=== PATIENT | female | born 1975 | race African-American/Black ===

== ENCOUNTER 2023-07-21 04:03 | Emergency (ER) | payer MEDICAID ==
[~2023-07-21] VITALS: Ht 167.6 cm; Wt 86.4 kg
[2023-07-21 04:35] VITALS: BP 147/83; PULSE 118; RESP 24; O2SAT 100
[2023-07-21 06:52] LABS: Alanine Aminotransferase 9 U/L (7-40); Albumin 4.2 g/dL (3.2-4.8); Alkaline Phosphatase 99 U/L (46-116); Anion Gap 9 (5-15); Aspartate Aminotransferase 11 U/L (13-40); Bilirubin, Total 0.3 mg/dL (0.2-1.0); Blood Urea Nitrogen 9 mg/dL (9-23); Calcium 9.2 mg/dL (8.5-10.1); Carbon Dioxide 22 mmol/L (20-30); Chloride 107 mmol/L (98-107); Glucose 96 mg/dL (74-106); Potassium 3.3 mmol/L (3.5-5.1); Sodium 138 mmol/L (136-145); Total Protein 8.1 g/dL (5.7-8.2)
[2023-07-21 07:16] LABS: Hematocrit 29.9 % (36.0-46.0); Hemoglobin 8.4 g/dL (12.2-16.2); Mean Corpuscular Hemoglobin 16.3 pg (28.0-32.0); Mean Corpuscular Hgb Conc. 28.2 g/dL (32.0-36.0); Mean Corpuscular Volume 57.7 fL (80.0-100.0); Red Blood Cells 5.18 10^6/uL (4.0-5.20)
[2023-07-21 07:24] LABS: Red Cell Distribution Width 21.2 % (11.8-14.3)
[2023-07-21 07:27] LABS: Basophils % (manual) 0 (0.0-2.0); Blast Cells 0; Metamyelocytes % 0; Myelocytes % 0; Promyelocytes % 0; Reactive Lymphocytes 0; White Blood Cell 33.8 10^3/uL (4.4-10.8)
[2023-07-21 08:56] LABS: Band Neutrophils % (manual) 5; Eosinophils % (manual) 1 (0-7); Lymphocytes % (manual) 9 (10.0-50.0); Monocytes % (manual) 9 (0-12)
[2023-07-21 08:57] LABS: Anisocytosis Slight; Hypochromia Marked; Platelet Estimate Adequate
== END 2023-07-21 10:04 | disposition left against medical advice (07) ==
LOC: ER 04:03
DX: R10.2 Pelvic and perineal pain (principal); Z53.21 Procedure and treatment not carried out due to patient leaving prior to being seen by health care provider
CPT/HCPCS: 36415; 80053; 84702; 85007; 85027

== ENCOUNTER 2025-04-30 23:09 | Inpatient (IN) | payer MEDICAID, OTHER ==
[~2025-04-30] VITALS: Ht 180.3 cm; Wt 109.0 kg
--- NOTE | 2025-04-30 23:31 | ECG ---
[facility] Test Date: 2025-04-30 Test Time: 23:26:15 Pat Name: WANDY ROMERO Department: ED Room: 0232 Gender: F Phone Banker: SU : 1975 Requested By: EMERGENCY EMERGENCY Order Number: [id number] Reading MD: Quincy Carter Measurements Intervals [place] Rate: 99 P: 77 TN: 169 QRS: 34 QRSD: 93 T: 96 QT: 406 QTc: 522 Interpretive Statements Sinus rhythm Biatrial enlargement Nonspecific T abnormalities, lateral leads Prolonged QT interval Electronically Signed On 05-02-2025 15:45:45 PST by Quincy Carter Please click the below link to view image of tracing.
[2025-05-01] VITALS (8 sets, daily range): BP systolic 124–184; BP diastolic 82–107; PULSE 88–104; RESP 18–20; TEMP 97–98.1; O2SAT 93–99
--- NOTE | 2025-05-01 | ED.PDOC ---
History of Present Illness HPI Comments 49-year-old female who presents to the ED via EMS with a chief complaint of headache onset today. Per EMS, patient began experiencing a headache as well as generalized weakness, ringing of bilateral ears after eating dinner around 22:00. Upon EMS arrival patient was hypertensive with a BP of 210 systolic. Patient states she began experiencing headache, radiating to left neck, left shoulder, generalized weakness, pressure sensation to epigastric region, described as a bloating sensation. Patient states she has not had a menstrual cycle for the past 3 months, possible . P:3. Rates pain 7/10. Upon ED arrival BP was 65/100. Denied head injury, chest pain, shortness of breath, dizziness, nausea, vomiting, diarrhea, constipation, hematuria, dysuria. No other symptoms or modifying factors present at this time. PHYSICAL EXAM: General: Awake, alert and oriented. Skin: Skin in warm, dry and intact. Appropriate color for ethnicity. HEENT: The head is normocephalic and atraumatic. Conjunctivae are clear without exudates or hemorrhage. Sclera is non-icteric. Eyelids are normal in appearance without swelling or lesions. Oral mucosa is pink and moist Neck: Bilateral neck tenderness. Cardiac: Heart rate and rhythm are normal. No murmurs, gallops, or rubs are auscultated. Respiratory: No signs of respiratory distress. Lung sounds are clear in all lobes bilaterally without rales, rhonchi, or wheezes. Abdominal: Abdomen is soft, non-tender without distention, guarding or rigidity. Bowel sounds are present and normoactive in all four quadrants. Extremities: Upper and lower extremities are atraumatic in appearance without deformity or edema. Neurological: The patient is awake, alert and oriented to person, place, and time with normal speech. Speech is clear. There is no facial asymmetry. Psychiatric: Appropriate mood and affect. Good judgement and insight. REVIEW OF SYSTEMS: General: Generalized weakness. HEENT: Bilateral ear ringing Cardiac: No chest pain. No palpitations. Lungs: No shortness of breath, no cough. GI: Epigastric pressure. : No dysuria, frequency, or urgency. No hematuria. Musculoskeletal: LT neck pain, LT shoulder pain Skin: No rash, no itching. Neuro: Headache, weakness (And as sated in HPI) Chief Complaint: Headache Time Seen by MD: 23:40 Reviewed Notes: Medications, Allergies Allergies: Coded Allergies: NO KNOWN ALLERGIES (Unverified , 07/21/23) Information Source: Patient, Emergency Med Personnel Mode of Arrival: EMS Severity: Moderate Timing: Hours Duration: Since onset Prehospital treatment: None Past Medical History PAST MEDICAL HISTORY: Denies Surgical History: Denies all surgeries ADJUSTER History: No Pertinent ADJUSTER History Family History Family History: Reviewed,noncontributory to illness, No family hx of Cancer, No family hx of DM, No family hx of Heart héctor, No family hx of HTN, No family hx ofKidney héctor, No family hx of Liver héctor, No family hx of Lung héctor, No family hx of Stroke Social History Smoker: Non-Smoker Alcohol: Denies ETOH Use Drugs: Denies Drug Use Lives In: Home Was a procedure done? Was a procedure done?: No EKG EKG : Pulse Rate (adult): 99 Cardiac Rhythm: NSR Differential Dx Considerations may include: Differential diagnoses considered include but are not limited to temporal arteritis, acute angle closure glaucoma, encephalitis, bacterial meningitis, carbon monoxide poisoning, posttraumatic headache, SAH, subdural hematoma, cervical artery dissection, venous sinus thrombosis, CVA, migraine headache, cluster headache, tension headache, TMJ disorder, frontal sinusitis, cervical spondylosis, intracranial mass, pituitary apoplexy. X-Ray, Labs, Meds, VS Vital Signs Date Time Temp Pulse Resp B/P (MAP) Pulse Ox O2 Delivery O2 Flow Rate FiO2 05/01/25 07:30 98.4 88 18 157/112 (127) 96 98.4 05/01/25 07:30 88 18 98 Room Air* 0 21 05/01/25 06:00 87 16 138/99 (112) 97 05/01/25 05:22 97 209/125 05/01/25 04:30 64 05/01/25 04:00 98 19 175/106 (129) 98 05/01/25 02:00 98 23 175/106 (129) 98 05/01/25 01:04 182/117 05/01/25 01:00 Nasal Cannula* 4 36 05/01/25 00:01 106 05/01/25 00:00 99 04/30/25 23:56 98.4 104 94 165/100 (121) 95 98.4 04/30/25 23:26 99 04/30/25 23:15 98.7 101 16 183/119 99 98.7 Lab Test 05/01/25 03:00 05/01/25 00:50 05/01/25 00:00 Range/Units Troponin I High Sensitivity 33 37 *H 34 </=34 ng/L Beta HCG, Quantitative 3.4 1.5-4.2 mIU/mL White Blood Count 8.4 4.4-10.8 10^3/uL Red Blood Count 6.06 H 4.0-5.20 10^6/uL Hemoglobin 15.7 12.2-16.2 g/dL Hematocrit 46.7 H 36.0-46.0 % Mean Corpuscular Volume 77.0 L 80.0-100.0 fL Mean Corpuscular Hemoglobin 25.9 L 28.0-32.0 pg Mean Corpuscular Hemoglobin Concent 33.6 32.0-36.0 g/dL Red Cell Distribution Width 19.6 H 11.8-14.3 % Platelet Count 268 140-450 10^3/uL Mean Platelet Volume 9.0 6.9-10.8 fL Neutrophils (%) (Auto) 69.4 37.0-80.0 % Lymphocytes (%) (Auto) 18.2 10.0-50.0 % Monocytes (%) (Auto) 9.7 0.0-12.0 % Eosinophils (%) (Auto) 2.0 0.0-7.0 % Basophils (%) (Auto) 0.7 0.0-2.0 % Neutrophils # (Auto) 5.9 1.6-8.6 10 ^3/uL Lymphocytes # (Auto) 1.5 0.4-5.4 10 ^3/uL Monocytes # (Auto) 0.8 0-1.3 10 ^3/uL Eosinophils # (Auto) 0.2 0-0.8 10 ^3/uL Basophils # (Auto) 0.1 0-0.2 10 ^3/uL Nucleated Red Blood Cells 0.1 % Sodium Level 145 136-145 mmol/L Potassium Level 2.9 L 3.5-5.1 mmol/L Chloride Level 108 H 98-107 mmol/L Carbon Dioxide Level 25 20-31 mmol/L Anion Gap 12 5-15 Blood Urea Nitrogen 8 L 9-23 mg/dL Creatinine 0.82 0.550-1.02 mg/dL Glomerular Filtration Rate Calc 87 >90 mL/min BUN/Creatinine Ratio 9.8 L 10.0-20.0 Serum Glucose 98 74-106 mg/dL Calcium Level 8.8 8.7-10.4 mg/dL Current Medications Medications (Trade) Dose Ordered Sig/Chante Route Start Time Stop Time Status Last Admin Sodium Chloride 1,000 ml @ 1,000 mls/hr Q1H ONCE IV 05/01/25 00:00 05/01/25 00:59 DC 05/01/25 00:05 Ketorolac Tromethamine (Toradol Injection) 30 mg ONCE ONCE IV 05/01/25 00:00 05/01/25 00:01 DC 05/01/25 00:11 Diphenhydramine HCl (Benadryl Injection) 25 mg ONCE ONCE IV 05/01/25 00:00 05/01/25 00:01 DC 05/01/25 00:09 Clonidine HCl (Catapres Tablet) 0.1 mg ONCE ONCE PO 05/01/25 01:00 05/01/25 01:01 DC 05/01/25 01:04 Potassium Chloride 100 ml @ 50 mls/hr ONCE ONCE IV 05/01/25 04:45 05/01/25 06:44 DC 05/01/25 05:22 Labetalol HCl (Labetalol HCl) 20 mg ONCE ONCE IV 05/01/25 04:45 05/01/25 04:46 DC 05/01/25 05:22 Time of 1ST Reevaluation: 00:10 Reevaluation 1ST: Unchanged Patient Education/Counseling: Diagnosis, Treatment, Need For Follow Up Family Education/Counseling: No Family Present SEPSIS Sepsis Screen Date sepsis recognized/suspect: Apr 30, 2025 Time Sepsis recognized/suspect: 2314 Recent Procedure: No On Antibiotic Therapy: No Respiratory Rate >20: No Heart Rate >90: Yes Temp<36 C (96.8 F) or >38.3 C: No SBP <90 or MAP <65 mmHG: No New Acute Mental Status Change: No Is the patient on CPAP, BIPAP,: No Physician Orders Titrate Oxygen (04/30/25 23:48) Oxygen (04/30/25 ) Continous Pulse Oximetry (04/30/25 23:48) Saline Lock (04/30/25 23:48) Tennis Desk Team Member (04/30/25 ) Test, Urine (05/01/25 00:59) Urinalysis (05/01/25 03:11) Vital Signs Date Time Temp Pulse Resp B/P (MAP) Pulse Ox O2 Delivery O2 Flow Rate FiO2 05/01/25 07:30 98.4 88 18 157/112 (127) 96 98.4 05/01/25 07:30 88 18 98 Room Air* 0 21 05/01/25 06:00 87 16 138/99 (112) 97 05/01/25 05:22 97 209/125 05/01/25 04:30 64 05/01/25 04:00 98 19 175/106 (129) 98 05/01/25 02:00 98 23 175/106 (129) 98 05/01/25 01:04 182/117 05/01/25 01:00 Nasal Cannula* 4 36 05/01/25 00:01 106 05/01/25 00:00 99 04/30/25 23:56 98.4 104 94 165/100 (121) 95 98.4 04/30/25 23:26 99 04/30/25 23:15 98.7 101 16 183/119 99 98.7 Laboratory Tests Test 05/01/25 00:00 White Blood Count 8.4 10^3/uL (4.4-10.8) Departure 1 Departure Time of Disposition: 04:35 Impression: Primary Impression: Headache Additional Impressions: Hypertension Elevated troponin Hypokalemia Disposition: ADMITTED INPATIENT Condition: Stable Comments MDM: Patient admitted to hospitalist service for further treatment, evaluation and monitoring. Extensive evaluation was performed in attempt to identify or rule out: (See differential diagnosis section) The following tests were ordered, and results were reviewed by me and discussed with patient: (See diagnostic results section) The following test were independently interpreted by me: EKG Decision regarding hospitalization or escalation of hospital level of care: Risk and benefits of admission for further treatment of patient's condition was considered. Due to patient's current clinical condition, high risk of decline and poor outcome if discharged and need for further inpatient management and monitoring, patient will be admitted to the hospital. Critical Care Note Critical Care Time?: No Stability Stability form required: No Heart Score Heart Score: Heart Score Response (Comments) Value History N/A 0 EKG N/A 0 Age N/A 0 Risk Factors N/A 0 Troponin N/A 0 Total 0 I personally scribed for LUCIANO ESQUEDA MD ([email or web address]) on 05/01/25 at 00:00. Electronically submitted by Chichi Reina ([email or web address]). I personally scribed for LUCIANO ESQUEDA MD ([email or web address]) on 05/01/25 at 00:09. Electronically submitted by Chichi Reina ([email or web address]). I personally scribed for LUCIANO ESQUEDA MD ([email or web address]) on 05/01/25 at 00:14. Electronically submitted by Chichi Reina ([email or web address]). LUCIANO ESQUEDA MD May 01, 2025 00:00
[2025-05-01] MEDS: SODIUM CHLORIDE 0.9% 1,000 ML IV ONE (00:05)
[2025-05-01] MEDS: diphenhydrAMINE HCL 50 MG/1 ML VL IV ONE (00:09)
[2025-05-01] MEDS: KETOROLAC TROMETH 30 MG/ML 1ML VIAL IV ONE (00:11)
[2025-05-01] MEDS: METOCLOPRAMIDE HCL 5MG/ml INJ 2ml VIAL IV ONE (00:12)
[2025-05-01 00:24] LABS: Hemoglobin 15.7 g/dL (12.2-16.2)
[2025-05-01 00:28] LABS: Hematocrit 46.7 % (36.0-46.0); Mean Corpuscular Hemoglobin 25.9 pg (28.0-32.0); Mean Corpuscular Volume 77.0 fL (80.0-100.0); Nucleated Red Blood Cells % 0.1 %
[2025-05-01 00:44] LABS: Sodium 145 mmol/L (136-145)
[2025-05-01 00:45] LABS: Anion Gap 12 (5-15); Calcium 8.8 mg/dL (8.7-10.4); Carbon Dioxide 25 mmol/L (20-31)
[2025-05-01 00:50] LABS: BUN/Creatinine Ratio 9.8 (10.0-20.0); Glucose 98 mg/dL (74-106)
[2025-05-01 00:53] LABS: Blood Urea Nitrogen 8 mg/dL (9-23); Chloride 108 mmol/L (98-107); Potassium 2.9 mmol/L (3.5-5.1)
[2025-05-01] MEDS: POTASSIUM CHL 20MEQ/100ML 100 ML IV ONE (05:22)
[2025-05-01] MEDS: LABETALOL HCL 20 MG/4 ML VL IV ONE (05:22)
[2025-05-01] MEDS ORDERED: MORPHINE SULFATE INJ 2 MG/ml SYRG IV PRN (08:00)
[2025-05-01] MEDS ORDERED: ONDANSETRON HCL 4 MG/2 ML VIAL IV PRN (08:00)
[2025-05-01] MEDS ORDERED: HYDROcodone-ACET 5/325MG TAB PO PRN (08:00)
--- NOTE | 2025-05-01 08:04 | DVHHP2 ---
History of Present Illness Reason for Visit: Generalized weakness History of Present Illness Akiko Velarde is a 49-year-old female with past medical history of who presents to the ED with headache and weakness along with bilateral ringing of the ears that started last night around 10. Per EMS notes patient was also hy pertensive with systolic blood pressure around 210s. Patient reports that her headache radiated to the left side of her neck shoulder and eventually developed abdominal pain with bloating. Patient also reports that she has not had her menstrual cycle for the last 3 months. Patient reports that her headache is 6/10 pressure-like and constant. She reports that medications are helpful. Patient also reports that she has not seen a primary care physician for the last 5 years. Patient reports that she had a bowel movement yesterday being soft and normal. Patient reports that she drinks wine daily and uses marijuana as well as gummies. Patient denies any recent trauma or injury, recent sick contacts, recent travels, recent ingestion of spoiled food, fever, chills, lightheadedness, weakness, dizziness, nausea, vomiting, diarrhea, or urinary symptoms. Past Surgical History: Family History: DM, Other (Mom with diabetes and dad .) Smoke: No ALCOHOL: occassional Drugs: Marijuana, Other Lives: with Family Domestic Violence: Neg Review of Systems Constitutional: Yes: Other Allergies: Coded Allergies: NO KNOWN ALLERGIES (Unverified , 07/21/23) Exam Vital Signs Vital Signs Date Time Temp Pulse Resp B/P (MAP) Pulse Ox O2 Delivery O2 Flow Rate FiO2 05/01/25 06:00 87 16 138/99 (112) 97 05/01/25 01:00 Nasal Cannula* 4 36 04/30/25 23:56 98.4 98.4 General Appearance: Alert, Oriented X3, Cooperative, No acute distress HEENT: Atraumatic, PERRLA, EOMI, Mucous membr. moist/pink Respiratory: Clear to auscultation, Normal air movement Cardiovascular: Regular rate, Normal S1, Normal S2 Abdominal: Normal bowel sounds, Soft Extremities: No clubbing, No cyanosis, Normal pulses Neuro: Normal gait, Normal speech, Strength at 5/5 X4 ext, Normal tone, Sensation intact Psych/Mental Status: Mental status NL, Mood NL Labs/Xrays Labs Test 05/01/25 03:00 05/01/25 00:00 Range/Units Troponin I High Sensitivity 33 </=34 ng/L Beta HCG, Quantitative 3.4 1.5-4.2 mIU/mL White Blood Count 8.4 4.4-10.8 10^3/uL Red Blood Count 6.06 H 4.0-5.20 10^6/uL Hemoglobin 15.7 12.2-16.2 g/dL Hematocrit 46.7 H 36.0-46.0 % Mean Corpuscular Volume 77.0 L 80.0-100.0 fL Mean Corpuscular Hemoglobin 25.9 L 28.0-32.0 pg Mean Corpuscular Hemoglobin Concent 33.6 32.0-36.0 g/dL Red Cell Distribution Width 19.6 H 11.8-14.3 % Platelet Count 268 140-450 10^3/uL Mean Platelet Volume 9.0 6.9-10.8 fL Neutrophils (%) (Auto) 69.4 37.0-80.0 % Lymphocytes (%) (Auto) 18.2 10.0-50.0 % Monocytes (%) (Auto) 9.7 0.0-12.0 % Eosinophils (%) (Auto) 2.0 0.0-7.0 % Basophils (%) (Auto) 0.7 0.0-2.0 % Neutrophils # (Auto) 5.9 1.6-8.6 10 ^3/uL Lymphocytes # (Auto) 1.5 0.4-5.4 10 ^3/uL Monocytes # (Auto) 0.8 0-1.3 10 ^3/uL Eosinophils # (Auto) 0.2 0-0.8 10 ^3/uL Basophils # (Auto) 0.1 0-0.2 10 ^3/uL Nucleated Red Blood Cells 0.1 % Sodium Level 145 136-145 mmol/L Potassium Level 2.9 L 3.5-5.1 mmol/L Chloride Level 108 H 98-107 mmol/L Carbon Dioxide Level 25 20-31 mmol/L Anion Gap 12 5-15 Blood Urea Nitrogen 8 L 9-23 mg/dL Creatinine 0.82 0.550-1.02 mg/dL Glomerular Filtration Rate Calc 87 >90 mL/min BUN/Creatinine Ratio 9.8 L 10.0-20.0 Serum Glucose 98 74-106 mg/dL Calcium Level 8.8 8.7-10.4 mg/dL CLINICAL INFORMATION: Pain and weakness. TECHNIQUE: Axial imaging was obtained through the brain without contrast. Coronal and sagittal reformatted images were obtained, reviewed, and stored. Images were reviewed in brain and bone windows. All CT scans at this medical facility are performed using dose modulation techniques as appropriate to a performed exam including the following: Automated exposure control was utilized; adjustment of the MA and/or KV according to patient size; and use of iterative reconstruction technique. CTDIvol = 59.45 mGy DLP = 2428.56 mGy-cm COMPARISON: None FINDINGS: There is no acute intracranial hemorrhage. No mass effect or midline shift. The ventricles and sulci are within normal limits in size for age. Basal cisterns are patent. The calvarium is unremarkable. Paranasal sinuses are clear. There is sclerosis in the left mastoid, likely sequelae of prior inflammation. No visualized opacification of the mastoid air cells. IMPRESSION: 1. No CT evidence of acute intracranial abnormality. 2. Nonacute findings as described above. EXAM: XY CHEST XRAY 1 VIEW Indication: sob Technique: Single frontal view of the chest was obtained Comparison: None FINDINGS: Lines and Tubes: None Lungs: No focal consolidation. Pleura: No effusion. No pneumothorax. Cardiomediastinal contours: Unremarkable Bones: No acute osseous abnormality. IMPRESSION: No acute cardiopulmonary disease. CLINICAL INFORMATION: Abdominal pain. TECHNIQUE: Axial CT images of the abdomen and pelvis were obtained without IV contrast. Coronal and sagittal reformatted images were obtained, reviewed, and stored. Evaluation of the parenchymal organs is limited without IV contrast. Evaluation of the bowel and mesentery is limited without oral contrast. All CT scans at this medical facility are performed using dose modulation techniques as appropriate to a performed exam including the following: Automated exposure control was utilized; adjustment of the MA and/or KV according to patient size; and use of iterative reconstruction technique. CTDIvol = 25.96 mGy DLP = 1367.97 mGy-cm COMPARISON: None FINDINGS: Examination is limited due to motion artifact and beam hardening artifact from the patient being scanned with arms at sides. Lung bases: Respiratory motion artifact limits evaluation. Mild atelectasis in the lung bases. Mild cardiomegaly. Trace pericardial effusion. Liver: Grossly unremarkable in its noncontrast enhanced appearance. No abnormal density or focal lesion identified. Biliary: Faint calcific density in the gallbladder, likely due to small gallstones. Spleen: Unremarkable. Pancreas: Grossly unremarkable in its noncontrast enhanced appearance. Adrenal glands: Unremarkable. No mass. Kidneys: No hydronephrosis. No renal or ureteral calculi. Aorta/Vascular: No aneurysm or significant calcification. Lymph nodes: No mass or lymphadenopathy. Bowel/mesentery: No small bowel obstruction. No free air or free fluid. Appendix is visualized and appears unremarkable. Scattered colonic diverticula without adjacent inflammatory changes to suggest diverticulitis. Pelvic organs: Uterus is anteverted. Multiple calcifications are seen in the uterus, may be due to small calcified fibroids, although not well evaluated on CT. Bladder: Unremarkable. No mass. Abdominal wall: Small umbilical hernia containing fat and small amount of fluid density. Bones: No acute fracture or suspicious intraosseous lesion. IMPRESSION: 1. Limited examination for the reasons described above. 2. Scattered colonic diverticula without adjacent inflammatory changes to suggest diverticulitis. 3. Small umbilical hernia containing fat small amount of fluid density. 4. Cholelithiasis. 5. Additional nonacute findings as described above. SEPSIS Sepsis Screen Date sepsis recognized/suspect: Apr 30, 2025 Time Sepsis recognized/suspect: 2314 Recent Procedure: No On Antibiotic Therapy: No Respiratory Rate >20: No Heart Rate >90: Yes Temp<36 C (96.8 F) or >38.3 C: No SBP <90 or MAP <65 mmHG: No New Acute Mental Status Change: No Is the patient on CPAP, BIPAP,: No Physician Orders Test, Urine (05/01/25 00:59) Urinalysis (05/01/25 03:11) Vital Signs Date Time Temp Pulse Resp B/P (MAP) Pulse Ox O2 Delivery O2 Flow Rate FiO2 05/01/25 06:00 87 16 138/99 (112) 97 05/01/25 05:22 97 209/125 05/01/25 04:30 64 05/01/25 04:00 98 19 175/106 (129) 98 05/01/25 02:00 98 23 175/106 (129) 98 05/01/25 01:04 182/117 05/01/25 01:00 Nasal Cannula* 4 36 05/01/25 00:01 106 05/01/25 00:00 99 04/30/25 23:56 98.4 104 94 165/100 (121) 95 98.4 Laboratory Tests Test 05/01/25 00:00 White Blood Count 8.4 10^3/uL (4.4-10.8) Medications Medications Dose Ordered Sig/Chante Route Start Time Stop Time Status Last Admin Dose Admin Clonidine HCl 0.1 mg ONCE ONCE PO 05/01/25 01:00 05/01/25 01:01 DC 05/01/25 01:04 0.1 MG Diphenhydramine HCl 25 mg ONCE ONCE IV 05/01/25 00:00 05/01/25 00:01 DC 05/01/25 00:09 25 MG Ketorolac Tromethamine 30 mg ONCE ONCE IV 05/01/25 00:00 05/01/25 00:01 DC 05/01/25 00:11 30 MG Labetalol HCl 20 mg ONCE ONCE IV 05/01/25 04:45 05/01/25 04:46 DC 05/01/25 05:22 20 MG Potassium Chloride 100 ml @ 50 mls/hr ONCE ONCE IV 05/01/25 04:45 05/01/25 06:44 NC 05/01/25 05:22 50 MLS/HR Sodium Chloride 1,000 ml @ 1,000 mls/hr Q1H ONCE IV 05/01/25 00:00 05/01/25 00:59 NC 05/01/25 00:05 1,000 MLS/HR Assessment/Plan Assessment/Plan Assessment Hypertensive urgency Acute hypoxic respiratory failure on supplemental oxygen Hypokalemia Generalized weakness Intractable headache unrelieved with p.o. medications Obesity Marijuana use Alcohol use History of Plan Admit to [facility] head ordered UA ordered UDS ordered Chest x-ray ordered CT abdomen and pelvis ordered Antiemetics Pain management Antihypertensives NS 1 L given in ED test Troponins EKG Diet No home medications reported per patient DVT prophylaxis-SCDs PUD prophylaxis-PPIs Discussed plan of care with patient and nurse Counseled patient on lifestyle modifications, diet, and exercise Counseled patient on cessation of polysubstance use 10072 Behavior change smoking greater than 10 minutes about use of other options also gave option of nicotine patch [id number] Preventive counseling healthy eating habits, physical activity, and regular checkups Plan discussed with: Patient Date of Service: May 01, 2025 Billing Provider: ES HAGAN Common Visit Codes: 72903-[id number] INP/OBS CARE (HIGH) Secondary Visit Codes: [id number] COUNSELING IND, 57490-DURST CHNG SMOKING >10MIN ES HAGAN May 01, 2025 08:04
--- NOTE | 2025-05-01 08:40 | DVH ---
EXAM: XY CHEST XRAY 1 VIEW Indication: sob Technique: Single frontal view of the chest was obtained Comparison: None FINDINGS: Lines and Tubes: None Lungs: No focal consolidation. Pleura: No effusion. No pneumothorax. Cardiomediastinal contours: Unremarkable Bones: No acute osseous abnormality. IMPRESSION: No acute cardiopulmonary disease.
--- NOTE | 2025-05-01 08:47 | DVH ---
CLINICAL INFORMATION: Pain and weakness. TECHNIQUE: Axial imaging was obtained through the brain without contrast. Coronal and sagittal reformatted images were obtained, reviewed, and stored. Images were reviewed in brain and bone windows. All CT scans at this medical facility are performed using dose modulation techniques as appropriate to a performed exam including the following: Automated exposure control was utilized; adjustment of the MA and/or KV according to patient size; and use of iterative reconstruction technique. CTDIvol = 59.45 mGy DLP = 2428.56 mGy-cm COMPARISON: None FINDINGS: There is no acute intracranial hemorrhage. No mass effect or midline shift. The ventricles and sulci are within normal limits in size for age. Basal cisterns are patent. The calvarium is unremarkable. Paranasal sinuses are clear. There is sclerosis in the left mastoid, likely sequelae of prior inflammation. No visualized opacification of the mastoid air cells. IMPRESSION: 1. No CT evidence of acute intracranial abnormality. 2. Nonacute findings as described above.
--- NOTE | 2025-05-01 08:53 | DVH ---
CLINICAL INFORMATION: Abdominal pain. TECHNIQUE: Axial CT images of the abdomen and pelvis were obtained without IV contrast. Coronal and sagittal reformatted images were obtained, reviewed, and stored. Evaluation of the parenchymal organs is limited without IV contrast. Evaluation of the bowel and mesentery is limited without oral contrast. All CT scans at this medical facility are performed using dose modulation techniques as appropriate to a performed exam including the following: Automated exposure control was utilized; adjustment of the MA and/or KV according to patient size; and use of iterative reconstruction technique. CTDIvol = 25.96 mGy DLP = 1367.97 mGy-cm COMPARISON: None FINDINGS: Examination is limited due to motion artifact and beam hardening artifact from the patient being scanned with arms at sides. Lung bases: Respiratory motion artifact limits evaluation. Mild atelectasis in the lung bases. Mild cardiomegaly. Trace pericardial effusion. Liver: Grossly unremarkable in its noncontrast enhanced appearance. No abnormal density or focal lesion identified. Biliary: Faint calcific density in the gallbladder, likely due to small gallstones. Spleen: Unremarkable. Pancreas: Grossly unremarkable in its noncontrast enhanced appearance. Adrenal glands: Unremarkable. No mass. Kidneys: No hydronephrosis. No renal or ureteral calculi. Aorta/Vascular: No aneurysm or significant calcification. Lymph nodes: No mass or lymphadenopathy. Bowel/mesentery: No small bowel obstruction. No free air or free fluid. Appendix is visualized and appears unremarkable. Scattered colonic diverticula without adjacent inflammatory changes to suggest diverticulitis. Pelvic organs: Uterus is anteverted. Multiple calcifications are seen in the uterus, may be due to small calcified fibroids, although not well evaluated on CT. Bladder: Unremarkable. No mass. Abdominal wall: Small umbilical hernia containing fat and small amount of fluid density. Bones: No acute fracture or suspicious intraosseous lesion. IMPRESSION: 1. Limited examination for the reasons described above. 2. Scattered colonic diverticula without adjacent inflammatory changes to suggest diverticulitis. 3. Small umbilical hernia containing fat small amount of fluid density. 4. Cholelithiasis. 5. Additional nonacute findings as described above.
[2025-05-01] MEDS: hydrALAZINE HCL 20 MG/ML VL IV ONE (10:41)
--- NOTE | 2025-05-01 11:01 | DVHPN2 ---
Reviewed: H&P Changes from previous H/P or p: No Changes General: Per HPI Objective Vitals Vital Signs Date Time Temp Pulse Resp B/P (MAP) Pulse Ox O2 Delivery O2 Flow Rate FiO2 05/01/25 10:41 176/102 05/01/25 09:44 98.1 96 20 97 98.1 05/01/25 07:30 Room Air* 0 21 Intake/Output Intake and Output 05/01/25 07:00 Intake Total 50 ml Balance 50 ml IV Total 50 ml Exam GEN: Healthy appearing, well-developed, NAD. HEENT: NC/AT; MMM. CV: RRR, no m/r/g. LUNGS: CTAB, no w/r/c. ABD: Soft, NT/ND, NBS, no masses or organomegaly. EXT: skin Warm, well perfused. no rashes. No clubbing, cyanosis, or edema. NEURO: Ambulating with no limitations. No focal deficits. Medications Current Medications Medications Dose Ordered Sig/Chante Route Start Time Stop Time Status Last Admin Dose Admin Acetaminophen/ Hydrocodone Bitart 1 tab Q4HP PRN PO 05/01/25 08:00 Ondansetron HCl 4 mg Q4HP PRN IV 05/01/25 08:00 Acetaminophen 650 mg Q6HP PRN PO 05/01/25 08:00 Morphine Sulfate 2 mg Q4HPRN PRN IV 05/01/25 08:00 UNV Morphine Sulfate 2 mg Q4HPRN PRN IV 05/01/25 10:30 Laboratory Results Laboratory Tests 05/01/25 00:00 Chemistry Test 05/01/25 00:00 Calcium Level 8.8 mg/dL (8.7-10.4) Labs and/or images reviewed: Labs reviewed by me, Image(s) reviewed by me Assessment/Plan Assessment/Plan 49-year-old female with unknown past medical history who presents to the ED with headache and weakness along with bilateral ringing of the ears that started last night around 10. Per EMS notes patient was also hypertensive with systolic blood pressure around 210. Patient reports that her headache radiated to the left side of her neck shoulder and eventually developed abdominal pain with bloating. Patient also reports that she has not had her menstrual cycle for the last 3 months. 05/01: Flu is positive start Tamiflu 75 b.i.d., several possible pneumonia we will start azithromycin 500 daily IV, has significant left shoulder pain, we will give Solu-Medrol 21 time and start baclofen 10 mg p.o. b.i.d.. Continue other home medications. We will keep on tele to ruled out and out of cautioned for cardiac nature of shoulder pain? . Continue other present medical management. Assessment Hypertensive emergency Troponinemia, type 2 NSTEMI, due to hypertension Influenza a infection Pneumonia, Gram-negative Gram-positive likely Acute hypoxic respiratory failure on supplemental oxygen Hypokalemia Generalized weakness Intractable headache Obesity [facility] head ordered UA ordered UDS ordered Chest x-ray ordered CT abdomen and pelvis ordered Antiemetics Pain management Antihypertensives NS 1 L given ED test Troponins EKG Diet No home medications DVT prophylaxis-SCDs PUD prophylaxis-PPIs Discussed plan of care with patient and nurse Plan discussed with: Patient Date of Service: May 01, 2025 Billing Provider: BETH FOOTE MD Common Visit Codes: [id number] INP/OBS CARE(HIGH) BETH FOOTE MD May 01, 2025 11:01
[2025-05-01] MEDS: LOSARTAN POTASSIUM 50 MG TAB PO SCH (12:15)
[2025-05-01] MEDS: PANTOPRAZOLE 40 MG/10 ML VIAL INJ IV ONE (12:17)
[2025-05-01] MEDS: methylPREDNISolone SOD SUCC 40 MG/ML VL IV ONE (12:17)
[2025-05-01 13:10] LABS: COVID19 ANTIGEN SOFIA FIA NEGATIVE (NEGATIVE)
[2025-05-01] MEDS ORDERED: NIFEdipine 10 MG CAP PO ONE (13:45)
[2025-05-01] MEDS ORDERED: AZITHROMYCIN 500MG/ 250ML 250 ML IV SCH (14:00)
[2025-05-01] MEDS: ZINC SULFATE 220mg CAP or TAB PO SCH (16:04)
[2025-05-01] MEDS: MORPHINE SULFATE 4 MG/ML SYR/VIAL IV PRN (16:04)
[2025-05-01] MEDS: SIMETHICONE 80 MG CHEWABLE TABLET PO SCH (17:32)
[2025-05-01] MEDS: BACLOFEN 10 MG TAB PO SCH (21:54)
[2025-05-01] MEDS: OSELTAMIVIR 75 MG CAP PO SCH (21:54)
[2025-05-01] MEDS: DOXYCYCLINE 100MG/100ML 100 ML IV SCH (21:55)
[2025-05-02] VITALS (7 sets, daily range): BP systolic 139–161; BP diastolic 89–113; PULSE 65–107; RESP 17–19; TEMP 97.3–98.4; O2SAT 93–100
[2025-05-02] MEDS: ACETAMINOPHEN 325 MG TAB PO PRN (01:14)
[2025-05-02 01:47] LABS: Urine Protein, UAD TRACE (Negative)
[2025-05-02 01:53] LABS: Opiate Scree,Urine Pos (NEGATIVE)
[2025-05-02 01:58] LABS: Amphetamine Screen, Urine Pos (NEGATIVE); Barbiturate Scree,Urine Neg (NEGATIVE); Benzodiazephine Screen, Urine Neg (NEGATIVE); Cannabinoid Screen, Urine Pos (NEGATIVE); Cocaine Screen, Urine Neg (NEGATIVE); Phencyclidine Screen, Urine Neg (NEGATIVE)
[2025-05-02 07:37] LABS: Hematocrit 48.1 % (36.0-46.0); Hemoglobin 15.9 g/dL (12.2-16.2); Mean Corpuscular Hemoglobin 25.9 pg (28.0-32.0); Mean Corpuscular Volume 78.2 fL (80.0-100.0); Nucleated Red Blood Cells % 0.1 %
[2025-05-02 07:51] LABS: Alanine Aminotransferase 20 U/L (7-40); Albumin 4.0 g/dL (3.2-4.8); Alkaline Phosphatase 85 U/L (46-116); Anion Gap 14 (5-15); BUN/Creatinine Ratio 12.1 (10.0-20.0); Calcium 9.5 mg/dL (8.7-10.4); Carbon Dioxide 22 mmol/L (20-31); Chloride 106 mmol/L (98-107); Potassium 3.5 mmol/L (3.5-5.1); Sodium 142 mmol/L (136-145); Total Protein 8.0 g/dL (5.7-8.2)
[2025-05-02 07:52] LABS: Bilirubin, Total 0.4 mg/dL (0.2-1.0)
[2025-05-02 07:55] LABS: Blood Urea Nitrogen 7 mg/dL (9-23); Glucose 63 mg/dL (74-106)
[2025-05-02] MEDS: PANTOPRAZOLE 40 MG/10 ML VIAL INJ IV SCH (08:33)
--- NOTE | 2025-05-02 10:44 | DVHDS2 ---
Discharge Summary Date of Admission May 01, 2025 at 07:54 Date of Discharge: May 02, 2025 Labs/Diagnostic Data: Laboratory Results Test 05/02/25 04:39 05/01/25 14:32 05/01/25 11:49 05/01/25 03:00 White Blood Count 9.9 10^3/uL (4.4-10.8) Red Blood Count 6.16 10^6/uL (4.0-5.20) Hemoglobin 15.9 g/dL (12.2-16.2) Hematocrit 48.1 % (36.0-46.0) Mean Corpuscular Volume 78.2 fL (80.0-100.0) Mean Corpuscular Hemoglobin 25.9 pg (28.0-32.0) Mean Corpuscular Hemoglobin Concent 33.1 g/dL (32.0-36.0) Red Cell Distribution Width 19.9 % (11.8-14.3) Platelet Count 275 10^3/uL (140-450) Mean Platelet Volume 9.9 fL (6.9-10.8) Neutrophils (%) (Auto) 77.4 % (37.0-80.0) Lymphocytes (%) (Auto) 14.1 % (10.0-50.0) Monocytes (%) (Auto) 7.8 % (0.0-12.0) Eosinophils (%) (Auto) 0.5 % (0.0-7.0) Basophils (%) (Auto) 0.2 % (0.0-2.0) Neutrophils # (Auto) 7.6 10 ^3/uL (1.6-8.6) Lymphocytes # (Auto) 1.4 10 ^3/uL (0.4-5.4) Monocytes # (Auto) 0.8 10 ^3/uL (0-1.3) Eosinophils # (Auto) 0 10 ^3/uL (0-0.8) Basophils # (Auto) 0 10 ^3/uL (0-0.2) Nucleated Red Blood Cells 0.1 % Sodium Level 142 mmol/L (136-145) Potassium Level 3.5 mmol/L (3.5-5.1) Chloride Level 106 mmol/L (98-107) Carbon Dioxide Level 22 mmol/L (20-31) Anion Gap 14 (5-15) Blood Urea Nitrogen 7 mg/dL (9-23) Creatinine 0.58 mg/dL (0.550-1.02) Glomerular Filtration Rate Calc 110 mL/min (>90) BUN/Creatinine Ratio 12.1 (10.0-20.0) Serum Glucose 63 mg/dL (74-106) Calcium Level 9.5 mg/dL (8.7-10.4) Total Bilirubin 0.4 mg/dL (0.2-1.0) Aspartate Amino Transferase (AST) 27 U/L (13-40) Alanine Aminotransferase (ALT) 20 U/L (7-40) Alkaline Phosphatase 85 U/L (46-116) Total Protein 8.0 g/dL (5.7-8.2) Albumin 4.0 g/dL (3.2-4.8) Urine Color Light-yellow (Yellow) Urine Clarity Turbid (Clear) Urine pH 6.5 (5.0-9.0) Urine Specific [place] 1.021 (1.001-1.035) Urine Protein Trace (Negative) Urine Ketones Negative (Negative) Urine Blood Negative /uL (Negative) Urine Nitrite Negative (Negative) Urine Bilirubin Negative (Negative) Urine Urobilinogen Normal mg/dL (Negative) Urine Leukocyte Esterase Trace /uL (Negative) Urine RBC 3 /hpf (0 - 4) Urine Microscopic WBC 9 /HPF (0-5) Urine Squamous Epithelial Cells Mod /hpf (<5) Urine Bacteria None seen /hpf (None Seen) Urine Mucus Few (None Seen) Urine Glucose Normal mg/dL (Normal) Urine Test Negative (Negative) Urine Opiates Screen Pos (NEGATIVE) Urine Fentanyl Screen Neg (NEGATIVE) Urine Barbiturates Screen Neg (NEGATIVE) Urine Phencyclidine Screen Neg (NEGATIVE) Urine Amphetamines Screen Pos (NEGATIVE) Urine Benzodiazepines Screen Neg (NEGATIVE) Urine Cocaine Screen Neg (NEGATIVE) Urine Cannabinoids Screen Pos (NEGATIVE) Influenza Type A Antigen Negative (Negative) Influenza Type B Antigen Positive (Negative) SARS-CoV-2 Antigen (Rapid) Negative (NEGATIVE) Troponin I High Sensitivity 33 ng/L (</=34) Beta HCG, Quantitative 3.4 mIU/mL (1.5-4.2) Other Laboratory Tests 05/02/25 04:39 Brief Hx & Hospital Course: 49-year-old female with unknown past medical history who presents to the ED with headache and weakness along with bilateral ringing of the ears that started last night around 10. Per EMS notes patient was also hypertensive with systolic blood pressure around 210. Patient reports that her headache radiated to the left side of her neck shoulder and eventually developed abdominal pain with bloating. Patient also reports that she has not had her menstrual cycle for the last 3 months. 05/01: Flu is positive start Tamiflu 75 b.i.d., several possible pneumonia we will start azithromycin 500 daily IV, has significant left shoulder pain, we will give Solu-Medrol 21 time and start baclofen 10 mg p.o. b.i.d.. Continue other home medications. We will keep on tele to ruled out and out of cautioned for cardiac nature of shoulder pain? . Continue other present medical management. 05/02: Patient blood pressure improving, symptoms improving. Vital signs stable. We will send home patient with current blood pressure medications, baclofen 10 b.i.d. for 7 days, and Tamiflu 75 b.i.d. for 5 days. Patient positive for meth which could be causing the high blood pressure. Continues to avoid any kind of methamphetamine, take blood pressure medications and follow up with PCP to review discharge review blood pressure log. Continue other home medications. We will pressure medications for discharge losartan 50, nifedipine XL 60 daily. Assessment Hypertensive emergency Troponinemia, type 2 NSTEMI, due to hypertension Influenza B infection Pneumonia, Gram-negative Gram-positive likely Acute hypoxic respiratory failure on supplemental oxygen, resolved Hypokalemia Generalized weakness Intractable headache Obesity Plan: - losartan 50, nifedipine XL 60 daily. - baclofen 10 b.i.d. for 7 days, - avoid any kind of methamphetamine, - take blood pressure medications and follow up with PCP to review discharge review blood pressure log. - Continue other home medications. Condition at Discharge: Fair Final Diagnosis/Problems List Hypertensive emergency Troponinemia, type 2 NSTEMI, due to hypertension Influenza B infection Pneumonia, Gram-negative Gram-positive likely Acute hypoxic respiratory failure on supplemental oxygen, resolved Hypokalemia Generalized weakness Intractable headache Obesity Discharge Disposition: Home Discharge Statement: "Patient was advised to return to the ER or call 911 if any headaches, dizziness, shortness of breath, chest pain, abdominal pain, bleeding, fevers, or worsening of medical condition. Patient was counseled about treatment plan, medications, possible side effects, patientverbalized understanding. All questions were answered to the best of my ability. This discharge took greater then 30 minutes in planning, reviewing documentation, counseling the patient, and discussing with other team members." ASSESSMENT ASSESSMENT Assessment Date of Service: May 02, 2025 Billing Provider: BETH FOOTE MD Common Visit Codes: [id number] DISCH DAY >30min BETH FOOTE MD May 02, 2025 10:44
[2025-05-02] MEDS ORDERED: LOS25T PO (12:40)
[2025-05-02] MEDS ORDERED: BACL10TA PO (12:40)
[2025-05-02] MEDS ORDERED: NIFE1TAB30 PO (12:40)
== END 2025-05-02 18:09 | disposition home or self-care (01) | DRG 139 ==
LOC: ER 23:09 → EDBD 23:09 → EDSEX 23:09 → OVERFLOW 05-01 07:54 → EAST 05-01 14:53
PROVIDERS: ADMIT Student in an Organized Health Care Education/Training Program; ATTEND Student in an Organized Health Care Education/Training Program
DX: J10.08 Influenza due to other identified influenza virus with other specified pneumonia (principal); J96.01 Acute respiratory failure with hypoxia; I16.1 Hypertensive emergency; I21.A1 Myocardial infarction type 2; J15.69 Pneumonia due to other Gram-negative bacteria; J15.9 Unspecified bacterial pneumonia; E66.9 Obesity, unspecified; Z20.822 Contact with and (suspected) exposure to COVID-19; I10 Essential (primary) hypertension; E87.6 Hypokalemia; F12.90 Cannabis use, unspecified, uncomplicated; Z98.891 History of uterine scar from previous surgery; Z83.3 Family history of diabetes mellitus; Z68.33 Body mass index [BMI] 33.0-33.9, adult
CPT/HCPCS: 36415; 70450; 71045; 74176; 80048; 80053; 80307; 81001; 81025; 84484; 84702; 85025; 87426; 87804; 93005; 96365; 96375; G0378; J1885; J2470; J3480